=== PATIENT | male | born 1980 | race Caucasian/White ===

== ENCOUNTER 2020-12-19 06:17 | Emergency (ER) | payer BC ==
[2020-12-19 06:34] VITALS: BP 153/100; PULSE 71; RESP 18; TEMP 97.6
[2020-12-19] MEDS ORDERED: ACET/COD 300 MG/30 MG STARTER PACK 6 TAB BTL PO STA (06:58)
[2020-12-19] MEDS ORDERED: PENICILLIN VK 500MG STARTER 4 TAB BTL PO STA (06:58)
--- NOTE | 2020-12-19 07:09 | ED ---
General Adult HPI - General Chief complaint: Dental/Oral Stated complaint: Dental Pain Time Seen by Provider: 12/19/20 06:37 Source: patient Mode of arrival: ambulatory Limitations: no limitations - History of Present Illness Initial comments: 40-year-old male presents to the emergency room for a chief complaint of dental pain. Patient has had dental pain for the past 3 hours. He did take Motrin. States the pain is in the right upper jaw. Patient states he has bad teeth and has been meaning to see a dentist but hasn't. Denies fevers. Denies sw elling.Patient has no other complaints at this time including shortness of breath, chest pain, abdominal pain, nausea or vomiting, headache, or visual changes. - Related Data Previous Rx's Medication Instructions Recorded Hydrocodone/Acetaminophen [[place] 1 each PO Q4HR PRN #15 tab 02/21/14 5-325] Levofloxacin [Levaquin] 500 mg PO DAILY #10 tab 02/21/14 Allergies Allergy/AdvReac Type Severity Reaction Status Date / Time No Known Allergies Allergy Verified 12/19/20 06:34 Review of Systems ROS Statement: Those systems with pertinent positive or pertinent negative responses have been documented in the HPI. ROS Other: All systems not noted in ROS Statement are negative. Past Medical History Past Medical History: No Reported History History of Any Multi-Drug Resistant Organisms: None Reported Past Surgical History: Hernia Repair Past Psychological History: No Psychological Hx Reported Smoking Status: Current every day smoker Past Alcohol Use History: Daily Past Drug Use History: Marijuana General Exam Limitations: no limitations General appearance: alert Head exam: Present: atraumatic, normocephalic Eye exam: Present: normal appearance, PERRL, EOMI. Absent: scleral icterus, conjunctival injection ENT exam: Present: normal exam, mucous membranes moist. Absent: normal oropharynx (Poor dentition, pain to tooth 1, no abscess, ) Neck exam: Present: normal inspection, full ROM. Absent: tenderness Respiratory exam: Present: normal lung sounds bilaterally. Absent: respiratory distress, wheezes Cardiovascular Exam: Present: regular rate, normal rhythm, normal heart sounds GI/Abdominal exam: Present: soft, normal bowel sounds. Absent: distended, tenderness Neurological exam: Present: alert Course Vital Signs 12/19/20 06:32 Temperature 97.6 F Pulse Rate 71 Respiratory 18 Rate Blood Pressure 153/100 O2 Sat by Pulse 96 Oximetry Medical Decision Making - Medical Decision Making Patient was given pain medication and antibiotics. No abscess seen. Patient can be discharged to follow-up with primary care. Will return for any worsening symptoms Patient apparently eloped prior to treatment and discharge. Disposition Clinical Impression: Pain, dental Disposition: HOME SELF-CARE Condition: Good Instructions (If sedation given, give patient instructions): Dental Abscess (ED) Additional Instructions: Please take medications as directions. Follow up with dentist in 1-2 days. Return to the ER for any worsening symptoms. Is patient prescribed a controlled substance at d/c from ED?: No Referrals: Monika Li MD [REFERRING] - 1-2 days Time of Disposition: 07:08
== END 2020-12-19 07:14 | disposition left against medical advice (07) ==
LOC: EC 06:17
DX: K08.89 Other specified disorders of teeth and supporting structures (principal); F17.200 Nicotine dependence, unspecified, uncomplicated; F12.90 Cannabis use, unspecified, uncomplicated
CPT/HCPCS: 99282